=== PATIENT | female | born 1995 | race Caucasian/White ===

== ENCOUNTER 2023-04-04 01:23 | Emergency (ER) | payer MEDICAID ==
[~2023-04-04] VITALS: Ht 162.6 cm; Wt 59.0 kg
[~2023-04-04 01:23] MED LIST: PREN-385 PO
[2023-04-04 01:24] VITALS: BP 126/87; PULSE 91; RESP 16; TEMP 97.4; O2SAT 100
[2023-04-04 02:10] VITALS: TEMP 97.9
[2023-04-04 06:10] VITALS: BP 103/60; PULSE 78; RESP 20; O2SAT 95
== END 2023-04-04 07:10 | disposition left against medical advice (07) ==
LOC: MED 01:23
DX: F19.10 Other psychoactive substance abuse, uncomplicated (principal); F11.129 Opioid abuse with intoxication, unspecified; F10.129 Alcohol abuse with intoxication, unspecified; Z79.899 Other long term (current) drug therapy
CPT/HCPCS: 70450; 93005; 99284